=== PATIENT | female | born 1990 | race Two or more races ===

== ENCOUNTER 2016-05-19 23:23 | Inpatient (IN) | payer MEDICARE, OTHER ==
[2016-05-20 00:39] LABS: Hematocrit 36 % (35-47); Hemoglobin 12.4 g/dl (12.0-16.0); Mean Corpuscular HGB Conc 34 g/dl (31-36); Mean Corpuscular Hemoglobin 34 pg (27-31); Mean Corpuscular Volume 100 fL (80-97); Mean Platelet Volume 8 um3 (7.4-10.4); Red Blood Count 3.62 10^6/ul (4.0-5.4); Red Cell Distribution Width 13 % (10.5-15); White Blood Count 7.3 10^3/ul (3.5-10.8)
[2016-05-20 00:47] LABS: Benzodiazepine Urine Screen None Detected (None Detect)
[2016-05-20 00:48] LABS: ALT 10 U/L (7-52); AST 19 U/L (13-39); Albumin 4.3 g/dL (3.2-5.2); Alkaline Phosphatase 45 U/L (34-104); Anion Gap 7 mmol/L (2-11); BUN/Creatinine Ratio 12.9 (8-20); Blood Urea Nitrogen 17 mg/dL (6-24); CO2 Carbon Dioxide 28 mmol/L (22-32); Calcium 9.8 mg/dL (8.6-10.3); Chloride 100 mmol/L (101-111); EGFR African American 61.6 (>60); EGFR Non-African American 47.9 (>60); Globulin 2.7 g/dL (2-4); Glucose 89 mg/dL (70-100); Potassium 3.8 mmol/L (3.5-5.0); Sodium 135 mmol/L (133-145)
[2016-05-20 00:59] LABS: Urine Bacteria Absent (Absent); Urine Bilirubin Negative (Negative); Urine Glucose Negative (Negative); Urine Nitrite Negative (Negative)
[2016-05-20 01:08] LABS: Acetaminophen < 15 mcg/mL; Alcohol < 10 mg/dL (<10); Salicylate < 2.50 mg/dL (<30)
[2016-05-20 01:18] LABS: TSH (Thyroid Stimulating Horm) 1.96 mcIU/mL (0.34-5.60)
[2016-05-20] MEDS ORDERED: Lithium Carbonate TAB* 300 MG PO SCH (11:30)
[2016-05-20] MEDS: Divalproex DR TAB(*) 500 MG PO SCH ×3 (12:10→21:16)
--- NOTE | 2016-05-20 12:12 | ED ---
Tee Hitchcock Benjamin, scribed for Isael Harley MD on 05/20/16 at 1148 . Progress - Progress Note Progress Note: Signout pt from Dr. Orozco for psychosis. 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 The documentation as recorded by the Tee diaz Benjamin accurately reflects the service I personally performed and the decisions made by me, Isael Harley MD.
[2016-05-20] MEDS: Benztropine TAB* 1 MG PO SCH ×3 (12:14→21:17)
[2016-05-20] MEDS: Folic Acid TAB* 1 MG PO SCH (12:19)
[2016-05-20] MEDS ORDERED: risperiDONE TAB* 2 MG PO SCH (18:00)
[2016-05-20] MEDS: Lithium Carbonate TAB* 300 MG PO SCH (18:36)
[2016-05-20] MEDS ORDERED: Acetaminophen TAB* 325 MG PO PRN (21:41)
[2016-05-21] MEDS: Levothyroxine TAB* 112 MCG TAB PO SCH (06:05)
[2016-05-21] MEDS ORDERED: Methotrexate TAB* 2.5 MG PO SCH (09:00)
[2016-05-21] MEDS: Divalproex DR TAB(*) 500 MG PO SCH ×2 (09:48→20:54)
[2016-05-21] MEDS: Folic Acid TAB* 1 MG PO SCH (09:49)
[2016-05-21] MEDS: Vitamin THERAPEUTIC TAB PO SCH (09:49)
[2016-05-21] MEDS: Lithium Carbonate TAB* 300 MG PO SCH ×2 (09:49→17:44)
[2016-05-21] MEDS: Benztropine TAB* 1 MG PO SCH ×2 (09:50→20:54)
[2016-05-21] MEDS: Al Hydrox/Mg Hydrox/Simet LIQ* 30 ML UDC PO PRN (10:18)
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
[2016-05-21] MEDS: risperiDONE TAB* 2 MG PO SCH (20:54)
[2016-05-22] MEDS: Levothyroxine TAB* 112 MCG TAB PO SCH (06:19)
[2016-05-22] MEDS: Vitamin THERAPEUTIC TAB PO SCH (08:09)
[2016-05-22] MEDS: Folic Acid TAB* 1 MG PO SCH (08:09)
[2016-05-22] MEDS: Divalproex DR TAB(*) 500 MG PO SCH ×2 (08:09→20:44)
[2016-05-22] MEDS: Lithium Carbonate TAB* 300 MG PO SCH ×2 (08:09→17:37)
[2016-05-22] MEDS: Benztropine TAB* 1 MG PO SCH ×2 (08:09→20:44)
[2016-05-22] MEDS ORDERED: ETANERCEPT 50 MG/ML SUBCUT SCH (09:00)
[2016-05-22] MEDS: Al Hydrox/Mg Hydrox/Simet LIQ* 30 ML UDC PO PRN (14:51)
[2016-05-22] MEDS: risperiDONE TAB* 2 MG PO SCH (20:44)
[2016-05-23] MEDS: Levothyroxine TAB* 112 MCG TAB PO SCH (07:46)
[2016-05-23] MEDS: Al Hydrox/Mg Hydrox/Simet LIQ* 30 ML UDC PO PRN ×3 (09:02→21:25)
[2016-05-23] MEDS: Folic Acid TAB* 1 MG PO SCH (09:03)
[2016-05-23] MEDS: Benztropine TAB* 1 MG PO SCH ×2 (09:03→20:21)
[2016-05-23] MEDS: Divalproex DR TAB(*) 500 MG PO SCH ×2 (09:03→20:21)
[2016-05-23] MEDS: Lithium Carbonate TAB* 300 MG PO SCH ×2 (09:04→17:46)
[2016-05-23] MEDS: Vitamin THERAPEUTIC TAB PO SCH (09:04)
--- NOTE | 2016-05-23 14:44 | DS ---
Subjective - Subjective Service Types: 59215 [facility] Day Mgmt simple under 30 min Discharge Date: 05/23/16 Subjective: Patient evaluated and records reviewed as per hand off request to discharge her home with her grand parents on SUN if approriate. Qi is a 26 y/o female with h/o Schizophrenia and Intellectual disability( IQ 77) re admitted to [facility] due to disturbing auditory hallucination leeding upto her inability to sleep.All reports indicate she was complient with her meds both inpatient and outpatient. Admission Dx: Schizoaffective d/o, Bipolar type and Intellectual disability. Past psychiatric history is remarkable for multiple admission to this unit, last one in 2016. She was also hospitalized at [facility] several time. First psychiatric hospitalization was at age 11. Past Medical History: Rheumatoid arthritis, GERD and Hypothyroidism. No Substance abuse history. Qi lives with her grand parents. Biological parents aren't meaningfully involved in her life. She is single and has no children. Objective - Appearance Appearance: Healthy Appearing Dysmorphic Features: No Hygiene: Normal Grooming: Well Kept - Behavior Psychomotor Activities: Abnormal-Decreased - Attitude and Relatedness Attitude and Relatedness: Appropriate Eye Contact: Good - Speech Quality: Unpressured Latencies: Normal Quantity: Terse - Mood Patient's Decription of Mood: "Good" - Affect Observed Affect: Non-labile - Thought Process Patient's Thought Process: Coherent, Goal Directed Thought Content: No Passive Wish, No Suicidal Planning, No Homicidal Ideation, No Paranoid Ideation - Sensorium Experiencing Hallucinations: No, Sensorium is Clear Type of Hallucinations: Visual: No, Auditory: No, Command: No - Level of Consciousness Level of Consciousness: Alert Orientation: Yes Intact, Yes Orientated to Time, Yes Orientated to Place, Yes Orientated to Person - Impulse Control Impulse Control: Intact - Insight and Judgement Insight and Judgement: Good - Group Participation Particating in Group Activities: Yes - Medication Management Medication Management Adherence: Yes Treatment Course & Assessment Clinical Course & Impression: 26 y/o WF known to this unit from prior admissions was readmitted in the context of disturbing auditory hallucinations. She has a established diagnosis of Schizoaffective d/o and Intellectual disability with h/o multiple hospitalizations beginning at age 11. On current treatments and supports Qi started feeling better and a decision was made by the treatment team decieded to discharge her home with her grandparents if her GP were willing to take her home. On today's evaluation Qi is at her baseline mental status and psychiatrically appropriate for discharge. However her grandmother expressed multiple concerns and would like the treatment team to speak with her prior to her discharge. We will hold off sending her home today to be able to clarify grandrosa maria's concerns as early as Mon or Tuesday. Merits Inpatient Hospitalization: No - [place] I Mental Illness: Schizoaffective d/o, Bipolar type - [place] II MR and Personality Disorder: Intellectual disability. Discharge Planning - Discharge Planning Discharge Plan: Outpatient Follow Up Outpatient Program: [facility] Recommendations for Continuing Care: Medication Management, Psychotherapy, Primary Care Followup Medications: Current Medications Acetaminophen (Tylenol Tab*) 650 mg PO Q4H PRN PRN Reason: PAIN or TEMP > 101 F Last Admin: 05/22/16 09:17 Dose: 650 mg Al Hydrox/Mg Hydrox/Simethicone (Maalox Plus*) 30 ml PO Q4H PRN PRN Reason: INDIGESTION Last Admin: 05/23/16 09:02 Dose: 30 ml Benztropine Mesylate (Cogentin Tab*) 2 mg PO BID [facility] Last Admin: 05/23/16 09:03 Dose: 2 mg Divalproex Sodium (Depakote Dr Tab(*)) 500 mg PO BID [facility] Last Admin: 05/23/16 09:03 Dose: 500 mg Etanercept (Enbrel (Nf)) 50 mg SUBCUT Sa@0900 [facility] Last Admin: 05/22/16 10:59 Dose: 50 mg Folic Acid (Folvite Tab*) 1 mg PO DAILY [facility] Last Admin: 05/23/16 09:03 Dose: 1 mg Levothyroxine Sodium (Synthroid Tab*) 112 mcg PO DAILY@0600 [facility] Last Admin: 05/23/16 07:46 Dose: 112 mcg [place] Carbonate ([place] Carbonate Tab*) 300 mg PO QPM [facility] Last Admin: 05/22/16 17:37 Dose: 300 mg [place] Carbonate ([place] Carbonate Tab*) 300 mg PO QAM [facility] Last Admin: 05/23/16 09:04 Dose: 300 mg Methotrexate (Methotrexate Tab*) 20 mg PO WEEKLY@0900 [facility] Last Admin: 05/21/16 09:59 Dose: 20 mg Multivitamins (Theragran Tab*) 1 tab PO DAILY [facility] Last Admin: 05/23/16 09:04 Dose: 1 tab Risperidone (Risperdal*) 8 mg PO BEDTIME [facility] Last Admin: 05/22/16 20:44 Dose: 8 mg Discharge Planning: Prescriptions provided for discharge [] Yes [] No Follow up care details as per social work arrangements. Patient response to discharge plan: [] eager for discharge [] agreeable with discharge plan [] ambivalent about discharge [] disagrees with discharge today
[2016-05-23] MEDS: risperiDONE TAB* 2 MG PO SCH (20:21)
[2016-05-24 08:04] VITALS: BP 108/74
[2016-05-24] MEDS: Levothyroxine TAB* 112 MCG TAB PO SCH (08:21)
[2016-05-24] MEDS: Folic Acid TAB* 1 MG PO SCH (08:21)
[2016-05-24] MEDS: Divalproex DR TAB(*) 500 MG PO SCH (08:22)
[2016-05-24] MEDS: Lithium Carbonate TAB* 300 MG PO SCH (08:22)
[2016-05-24] MEDS: Benztropine TAB* 1 MG PO SCH (08:22)
[2016-05-24] MEDS: Vitamin THERAPEUTIC TAB PO SCH (08:22)
--- NOTE | 2016-05-24 10:34 | PN ---
Subjective - Subjective Service Type: [id number] Hosp care 15 min low complexity Plan - Plan Treatment Plan: Name: IRASEMA FRANZ Birthdate: 1990 [id number] Medications: Current Medications Acetaminophen (Tylenol Tab*) 650 mg PO Q4H PRN PRN Reason: PAIN or TEMP > 101 F Last Admin: 05/22/16 09:17 Dose: 650 mg Al Hydrox/Mg Hydrox/Simethicone (Maalox Plus*) 30 ml PO Q4H PRN PRN Reason: INDIGESTION Last Admin: 05/23/16 21:25 Dose: 30 ml Benztropine Mesylate (Cogentin Tab*) 2 mg PO BID [facility] Last Admin: 05/24/16 08:22 Dose: 2 mg Divalproex Sodium (Depakote Dr Tab(*)) 500 mg PO BID [facility] Last Admin: 05/24/16 08:22 Dose: 500 mg Etanercept (Enbrel (Nf)) 50 mg SUBCUT Sa@0900 [facility] Last Admin: 05/22/16 10:59 Dose: 50 mg Folic Acid (Folvite Tab*) 1 mg PO DAILY [facility] Last Admin: 05/24/16 08:21 Dose: 1 mg Levothyroxine Sodium (Synthroid Tab*) 112 mcg PO DAILY@0600 [facility] Last Admin: 05/24/16 08:21 Dose: 112 mcg [place] Carbonate (Dana Carbonate Tab*) 300 mg PO QPM [facility] Last Admin: 05/23/16 17:46 Dose: 300 mg [place] Carbonate (Dana Carbonate Tab*) 300 mg PO QAM [facility] Last Admin: 05/24/16 08:22 Dose: 300 mg Methotrexate (Methotrexate Tab*) 20 mg PO WEEKLY@0900 [facility] Last Admin: 05/21/16 09:59 Dose: 20 mg Multivitamins (Theragran Tab*) 1 tab PO DAILY [facility] Last Admin: 05/24/16 08:22 Dose: 1 tab Risperidone (Risperdal*) 8 mg PO BEDTIME [facility] Last Admin: 05/23/16 20:21 Dose: 8 mg
[2016-05-24] MEDS ORDERED: Lithium Carbonate TAB* 300 MG PO SCH (10:35)
--- NOTE | 2016-05-24 10:40 | DS ---
Subjective - Subjective Service Types: 18825 Hosp DC Day Mgmt complex over 30 min Discharge Date: 05/24/16 Treatment Course & Assessment - [place] I Mental Illness: Schizoaffective d/o, Bipolar type - [place] II MR and Personality Disorder: Intellectual disability. Discharge Planning - Discharge Planning Discharge Plan: Outpatient Follow Up Recommendations for Continuing Care: Medication Management, Psychotherapy, Routine Metabolic Monitoring, Therapeutic Drug Levels Medications: Current Medications Acetaminophen (Tylenol Tab*) 650 mg PO Q4H PRN PRN Reason: PAIN or TEMP > 101 F Last Admin: 05/22/16 09:17 Dose: 650 mg Al Hydrox/Mg Hydrox/Simethicone (Maalox Plus*) 30 ml PO Q4H PRN PRN Reason: INDIGESTION Last Admin: 05/23/16 21:25 Dose: 30 ml Benztropine Mesylate (Cogentin Tab*) 2 mg PO BID [facility] Last Admin: 05/24/16 08:22 Dose: 2 mg Divalproex Sodium (Depakote Dr Tab(*)) 500 mg PO BID [facility] Last Admin: 05/24/16 08:22 Dose: 500 mg Etanercept (Enbrel (Nf)) 50 mg SUBCUT Sa@0900 [facility] Last Admin: 05/22/16 10:59 Dose: 50 mg Folic Acid (Folvite Tab*) 1 mg PO DAILY [facility] Last Admin: 05/24/16 08:21 Dose: 1 mg Levothyroxine Sodium (Synthroid Tab*) 112 mcg PO DAILY@0600 [facility] Last Admin: 05/24/16 08:21 Dose: 112 mcg [place] Carbonate ([place] Carbonate Tab*) 300 mg PO QPM [facility] Last Admin: 05/23/16 17:46 Dose: 300 mg [place] Carbonate ([place] Carbonate Tab*) 300 mg PO QAM [facility] Last Admin: 05/24/16 08:22 Dose: 300 mg Methotrexate (Methotrexate Tab*) 20 mg PO WEEKLY@0900 [facility] Last Admin: 05/21/16 09:59 Dose: 20 mg Multivitamins (Theragran Tab*) 1 tab PO DAILY [facility] Last Admin: 05/24/16 08:22 Dose: 1 tab Risperidone (Risperdal*) 8 mg PO BEDTIME [facility] Last Admin: 05/23/16 20:21 Dose: 8 mg Discharge Planning: Prescriptions provided for discharge [] Yes [] No Follow up care details as per social work arrangements. Patient response to discharge plan: [] eager for discharge [] agreeable with discharge plan [] ambivalent about discharge [] disagrees with discharge today
--- NOTE | 2016-05-24 10:44 | DCNOTE ---
Subjective - Subjective Service Types: 93389 Hosp DC Day Mgmt complex over 30 min Discharge Date: 05/24/16 Subjective: Qi remains interested in discharge. She denies perceptual disturbance or distress, and makes no delusional comments. I conveyed info from g-parents about plan for propranolol and she was interested in starting it, noting familiarity and good result. She also was okay with prior dose of Altheimer. I spoke with her grandmother Taylor. Her anxiety was that although Qi is doing well, she worries that a pattern of hospitalizations will result again. She expressed a strong preference for pt. to be on higher dose Altheimer, preferably 1200mg, but agreed with 900mg dose. And she said plan was to see her prescriber this week for propranolol, but I offered to start it here (for tremor). She supported Qi's release today, and confirmed adequate supply of all home medications. Objective - Appearance Appearance: Well Developed/Nourished Hygiene: Normal Grooming: Well Kept - Behavior Psychomotor Activities: Normal - Attitude and Relatedness Attitude and Relatedness: Child Like Eye Contact: Good - Speech Quality: Unpressured Latencies: Normal Quantity: Terse - Mood Patient's Decription of Mood: "Anxious" - Affect Observed Affect: Labile Affect Consistent with: Euthymia - Thought Process Patient's Thought Process: Coherent, Goal Directed, Impoverished Thought Content: No Passive Wish, No Suicidal Planning, No Homicidal Ideation, No Paranoid Ideation - Sensorium Experiencing Hallucinations: No, Sensorium is Clear - Level of Consciousness Level of Consciousness: Alert - Impulse Control Impulse Control: Intact - Insight and Judgement Insight and Judgement: Poor DC Assessment - Assessment Clinical Impression: 26-year-old female with chronic intellectual disability and schizoaffective disorder with multiple prior psychiatric hospitalizations. She presented in an acute crisis of a couple of days' distress with a apparent hallucinations, some increase in delusional ideation and difficulty functioning. 05/24/16 Clear for release. Qi was stable in this setting. Her clinical status is much mider than we have seen previously. She was not bothered by perceptual disturbances, and did not make delusional comments. She was safe on checks, hygiene was good, she was in good behavioral control. A brief hospitalization, keeping with her preference, has been appropriate. Medication mgt. continues her outpatient regimen, adding propranolol to address tremor (grandfather said it had been effective before). Qi is prone to this kind of crisis. Acute risk of harm to self/other is assessed as low on basis of patient's benign ideation/behavior and low symptom burden. Her conditions increase her chronic risk for suicide, minor violence, and inadvertent harm. Clear for Discharge: Adequate Clinical Respons, Acceptable Safety Profile, Low Utility of In Care - [place] I Mental Illness: 1. Intellectual disability. 2. Schizoaffective disorder, bipolar type. Discharge Planning - Discharge Planning Discharge Plan: Outpatient Follow Up Recommendations for Continuing Care: Medication Management, Psychotherapy, Routine Metabolic Monitoring, Therapeutic Drug Levels Medications: Current Medications Acetaminophen (Tylenol Tab*) 650 mg PO Q4H PRN PRN Reason: PAIN or TEMP > 101 F Last Admin: 05/22/16 09:17 Dose: 650 mg Al Hydrox/Mg Hydrox/Simethicone (Maalox Plus*) 30 ml PO Q4H PRN PRN Reason: INDIGESTION Last Admin: 05/23/16 21:25 Dose: 30 ml Benztropine Mesylate (Cogentin Tab*) 2 mg PO BID [facility] Last Admin: 05/24/16 08:22 Dose: 2 mg Divalproex Sodium (Depakote Dr Tab(*)) 500 mg PO BID [facility] Last Admin: 05/24/16 08:22 Dose: 500 mg Etanercept (Enbrel (Nf)) 50 mg SUBCUT Sa@0900 [facility] Last Admin: 05/22/16 10:59 Dose: 50 mg Folic Acid (Folvite Tab*) 1 mg PO DAILY [facility] Last Admin: 05/24/16 08:21 Dose: 1 mg Levothyroxine Sodium (Synthroid Tab*) 112 mcg PO DAILY@0600 [facility] Last Admin: 05/24/16 08:21 Dose: 112 mcg [place] Carbonate (Altheimer Carbonate Tab*) 300 mg PO QAM [facility] Last Admin: 05/24/16 08:22 Dose: 300 mg [place] Carbonate ([place] Carbonate Tab*) 600 mg PO QPM [facility] Methotrexate (Methotrexate Tab*) 20 mg PO WEEKLY@0900 [facility] Last Admin: 05/21/16 09:59 Dose: 20 mg Multivitamins (Theragran Tab*) 1 tab PO DAILY [facility] Last Admin: 05/24/16 08:22 Dose: 1 tab Propranolol HCl (Inderal Tab*) 10 mg PO BID [facility] Risperidone (Risperdal*) 8 mg PO BEDTIME [facility] Last Admin: 05/23/16 20:21 Dose: 8 mg Discharge Planning: Prescriptions provided for discharge [x] Yes propranolol Follow up care details as per social work arrangements. Patient response to discharge plan: [x] eager for discharge [] agreeable with discharge plan [] ambivalent about discharge [] disagrees with discharge today
--- NOTE | 2016-05-24 11:15 | PN ---
[facility]: Group Therapy Note - Service Type Service Type: 09913 Group Psychotherapy - Cognitive Behavioral Group Therapy ( CBT):Patient was attentive and participatory in CBT programming this morning, and remained in good behavioral control. Patient expressed positive insights regarding relevant treatment interventions and goals.
[2016-05-24] MEDS ORDERED: Propranolol TAB* 10 MG PO SCH (21:00)
--- NOTE | 2016-06-08 04:05 | ED ---
Benoit Hitchcock Karl, scribed for Trip Orozco MD on 05/20/16 at 0023 . Psychiatric Complaint - HPI Summary HPI Summary: Pt is a 26 y/o female that presents to the ED a psychiatric complaint. Pt reported that for the last 4 days she has been suffering from auditory hallucinations, sleep deprivation, tremors, and dehydration. Pt stated she is hearing voices and "not feeling right, out of it." Per nursing note, pt's grandmother reports that the pt had an argument with her doctor today about a medication change. Pt was seen at [facility] earlier today. Hx: Bipolar disorder w/ psychotic features. - History Of Current Complaint Chief Complaint: EDMentalHealth Time Seen by Provider: 05/19/16 23:54 Hx Obtained From: Patient Onset/Duration: Gradual Onset Timing: Constant Severity Initially: Moderate Severity Currently: Moderate Aggravating Factor(s): Medication Non-compliance - changte in medication Associated Signs And Symptoms: Positive: Hallucinating, Sleep Disturbance Related History: Positive For: Prior Psychiatric Issues Has Suicidal: Denies: Thoughts, With A Plan Has Homicidal: Denies: Thoughts, With A Plan - Allergies/Home Medications Allergies/Adverse Reactions: Allergies Allergy/AdvReac Type Severity Reaction Status Date / Time No Known Allergies Allergy Verified 05/22/16 16:04 PMH/Surg Hx/FS Hx/Imm Hx Endocrine/Hematology History: Reports: Hx Thyroid Disease - HYPOTHYROIDISM, Other Endocrine/Hematological Disorders - Rheumatoid Arthritis GI History: Reports: Hx Gastroesophageal Reflux Disease Musculoskeletal History: Reports: Hx Arthritis, Other Musculoskeletal History - RHEUMATOID ARTHRITIS Sensory History: Reports: Hx Contacts or Glasses Opthamlomology History: Reports: Hx Contacts or Glasses Neurological History: Reports: Hx Developmental Delay Psychiatric History: Reports: Hx Inpatient Treatment - [facility], [facility], Hx Community Mental Health [facility] - [facility][1], Hx Bipolar Disorder, Hx of Violent Episodes Against Others, Other Psychiatric Issues/Disorders - Schizoaffective D/O Denies: Hx Eating Disorder - Surgical History Surgery Procedure, Year, and Place: tubal ligation 2013 Infectious Disease History: No Infectious Disease History: Denies: Traveled Outside the in Last 30 Days - Family History Known Family History: Positive: Other - bipolar disorder - mother, schizophrenia - grandmother, EtOH abuse - Social History Alcohol Use: None Substance Use Type: Reports: None Smoking Status (MU): Never Smoked Tobacco Have You Smoked in the Last Year: No Review of Systems Constitutional: Other - dehydration Eyes: Negative ENT: Negative Cardiovascular: Negative Respiratory: Negative Gastrointestinal: Negative Genitourinary: Negative Musculoskeletal: Negative Skin: Negative Neurological: Other - tremors Psychological: Other - auditory hallucinations, sleep disturbance All Other Systems Reviewed And Are Negative: Yes Physical Exam Vital Signs On Initial Exam: Initial Vitals Temp Pulse Resp BP Pulse Ox 98.4 F 97 18 128/86 100 05/19/16 23:29 05/19/16 23:29 05/19/16 23:29 05/19/16 23:29 05/19/16 23:29 Diagnostics - Vital Signs Vital Signs Temp Pulse Resp BP Pulse Ox 05/19/16 23:29 98.4 F 97 18 128/86 100 - Laboratory Lab Results: Lab Results 05/20/16 05/20/16 05/20/16 Range/Units 00:20 00:20 00:20 WBC 7.3 (3.5-10.8) 10^3/ul RBC 3.62 L (4.0-5.4) 10^6/ul Hgb 12.4 (12.0-16.0) g/dl Hct 36 (35-47) % MCV 100 H (80-97) fL MCH 34 H (27-31) pg MCHC 34 (31-36) g/dl RDW 13 (10.5-15) % Plt Count 161 (150-450) 10^3/ul MPV 8 (7.4-10.4) um3 Neut % (Auto) 58.5 (38-83) % Lymph % (Auto) 31.2 (25-47) % [place] % (Auto) 7.3 (1-9) % Eos % (Auto) 2.0 (0-6) % Baso % (Auto) 1.0 (0-2) % Absolute Neuts (auto) 4.3 (1.5-7.7) 10^3/ul Absolute Lymphs (auto) 2.3 (1.0-4.8) 10^3/ul Absolute Monos (auto) 0.5 (0-0.8) 10^3/ul Absolute Eos (auto) 0.1 (0-0.6) 10^3/ul Absolute Basos (auto) 0.1 (0-0.2) 10^3/ul Absolute Nucleated RBC 0.01 10^3/ul Nucleated RBC % 0.1 Sodium 135 (133-145) mmol/L Potassium 3.8 (3.5-5.0) mmol/L Chloride 100 L (101-111) mmol/L Carbon Dioxide 28 (22-32) mmol/L Anion Gap 7 (2-11) mmol/L BUN 17 (6-24) mg/dL Creatinine 1.32 H (0.51-0.95) mg/dL Est GFR ( Amer) 61.6 (>60) Est GFR (Non-Af Amer) 47.9 (>60) BUN/Creatinine Ratio 12.9 (8-20) Glucose 89 (70-100) mg/dL Calcium 9.8 (8.6-10.3) mg/dL Total Bilirubin 0.40 (0.2-1.0) mg/dL AST 19 (13-39) U/L ALT 10 (7-52) U/L Alkaline Phosphatase 45 (34-104) U/L Total Protein 7.0 (6.4-8.9) g/dL Albumin 4.3 (3.2-5.2) g/dL Globulin 2.7 (2-4) g/dL Albumin/Globulin Ratio 1.6 (1-3) TSH 1.96 (0.34-5.60) mcIU/mL Beta HCG, Quant < 0.60 mIU/mL Urine Color Yellow Urine Appearance Cloudy Urine pH 6.0 (5-9) Ur Specific [place] 1.018 (1.010-1.030) Urine Protein Negative (Negative) Urine Ketones Trace H (Negative) Urine Blood Negative (Negative) Urine Nitrate Negative (Negative) Urine Bilirubin Negative (Negative) Urine Urobilinogen Negative (Negative) Ur Leukocyte Esterase 3+ H (Negative) Urine WBC (Auto) 3+(>20/hpf) H (Absent) Urine RBC (Auto) 3+(>10/hpf) H (Absent) Ur Squamous Epith Cells Present H (Absent) Urine Bacteria Absent (Absent) Urine Glucose Negative (Negative) Urine Ascorbic Acid * H (Negative) Salicylates < 2.50 (<30) mg/dL Urine Opiates Screen (None Detect) Acetaminophen < 15 mcg/mL Ur Barbiturates Screen (None Detect) Ur Phencyclidine Scrn (None Detect) Ur Amphetamines Screen (None Detect) U Benzodiazepines Scrn (None Detect) Urine Cocaine Screen (None Detect) U Cannabinoids Screen (None Detect) Serum Alcohol < 10 (<10) mg/dL 05/20/16 Range/Units 00:20 WBC (3.5-10.8) 10^3/ul RBC (4.0-5.4) 10^6/ul Hgb (12.0-16.0) g/dl Hct (35-47) % MCV (80-97) fL MCH (27-31) pg MCHC (31-36) g/dl RDW (10.5-15) % Plt Count (150-450) 10^3/ul MPV (7.4-10.4) um3 Neut % (Auto) (38-83) % Lymph % (Auto) (25-47) % [place] % (Auto) (1-9) % Eos % (Auto) (0-6) % Baso % (Auto) (0-2) % Absolute Neuts (auto) (1.5-7.7) 10^3/ul Absolute Lymphs (auto) (1.0-4.8) 10^3/ul Absolute Monos (auto) (0-0.8) 10^3/ul Absolute Eos (auto) (0-0.6) 10^3/ul Absolute Basos (auto) (0-0.2) 10^3/ul Absolute Nucleated RBC 10^3/ul Nucleated RBC % Sodium (133-145) mmol/L Potassium (3.5-5.0) mmol/L Chloride (101-111) mmol/L Carbon Dioxide (22-32) mmol/L Anion Gap (2-11) mmol/L BUN (6-24) mg/dL Creatinine (0.51-0.95) mg/dL Est GFR ( Amer) (>60) Est GFR (Non-Af Amer) (>60) BUN/Creatinine Ratio (8-20) Glucose (70-100) mg/dL Calcium (8.6-10.3) mg/dL Total Bilirubin (0.2-1.0) mg/dL AST (13-39) U/L ALT (7-52) U/L Alkaline Phosphatase (34-104) U/L Total Protein (6.4-8.9) g/dL Albumin (3.2-5.2) g/dL Globulin (2-4) g/dL Albumin/Globulin Ratio (1-3) TSH (0.34-5.60) mcIU/mL Beta HCG, Quant mIU/mL Urine Color Urine Appearance Urine pH (5-9) Ur Specific [place] (1.010-1.030) Urine Protein (Negative) Urine Ketones (Negative) Urine Blood (Negative) Urine Nitrate (Negative) Urine Bilirubin (Negative) Urine Urobilinogen (Negative) Ur Leukocyte Esterase (Negative) Urine WBC (Auto) (Absent) Urine RBC (Auto) (Absent) Ur Squamous Epith Cells (Absent) Urine Bacteria (Absent) Urine Glucose (Negative) Urine Ascorbic Acid (Negative) Salicylates (<30) mg/dL Urine Opiates Screen None detected (None Detect) Acetaminophen mcg/mL Ur Barbiturates Screen None detected (None Detect) Ur Phencyclidine Scrn None detected (None Detect) Ur Amphetamines Screen None detected (None Detect) U Benzodiazepines Scrn None detected (None Detect) Urine Cocaine Screen None detected (None Detect) U Cannabinoids Screen None detected (None Detect) Serum Alcohol (<10) mg/dL Result Diagrams: 05/20/16 00:20 05/20/16 00:20 Lab Statement: Any lab studies that have been ordered have been reviewed, and results considered in the medical decision making process. Course/Dx - Differential Dx/Clinical Impression Provider Diagnosis: Psychosis - Physician Notifications Instructed by Provider To: Admit As Inpatient Discharge - Discharge Plan Condition: Fair Disposition: ADMITTED TO [facility] The documentation as recorded by the Benoit diaz Karl accurately reflects the service I personally performed and the decisions made by Pam sandoval David, MD.
== END 2016-05-24 18:35 | disposition home or self-care (01) | DRG 885 ==
LOC: ED 23:23 → BSU 05-20 17:53
PROVIDERS: ADMIT Psychiatry & Neurology Psychiatry; ATTEND Psychiatry & Neurology Psychiatry
DX: F25.0 Schizoaffective disorder, bipolar type (principal); F79 Unspecified intellectual disabilities; E03.9 Hypothyroidism, unspecified; M06.9 Rheumatoid arthritis, unspecified; K21.9 Gastro-esophageal reflux disease without esophagitis; Z81.8 Family history of other mental and behavioral disorders
CPT/HCPCS: 36415; 80053; 80307; 80320; 80329; 81003; 81015; 84443; 84702; 85025; 87086; 90853; 99222; 99238; A9270-GY; G0480; J8610

== ENCOUNTER 2019-02-27 16:41 | Inpatient (IN) | payer MEDICARE, MEDICAID ==
--- OUTSIDE RECORDS SUMMARY | 2019-02-27 17:25 | XMS REPORT ---
:1990 Author Organization [facility] Dental Care Team Providers Name Role Phone Elissa Cain Unavailable Unavailable PROBLEMS Unknown Problems ALLERGIES No Known Allergies ENCOUNTERS Encounter Location Date Diagnosis [address] [address] Mar, [address] [address] Feb, [address] [address] Feb, [address] [address] Nov, IMMUNIZATIONS No Known Immunizations SOCIAL HISTORY Never Assessed REASON FOR REFERRAL FUNCTIONAL STATUS PLAN OF CARE VITAL SIGNS MEDICATIONS Medication Instructions Dosage Frequency Start Date End Date Duration Status Folic Acid Active RisperiDONE ER Active [place] Active Methotrexate Active Xeljanz Active Divalproex Sodium Active Levothyroxine Active Sodium Propranolol HCl Active Benztropine Active Mesylate Vistaril Active PROCEDURES Procedure Date Ordered Result Body Site Caries Risk Assess and Doc Low Risk Feb 15, 2019 PROPHYLAXIS - ADULT 13yrs and older Feb 15, 2019 RESULTS No Results REASON FOR VISIT cleaning Insurance Providers [facility] Member Patient Patient Patient Patient Patient Subscriber Subscriber Subscriber Group Insurance Plan Plan Plan Plan ID Relationship Address Phone Name Date of ID Name Date of No Type Insurance Insurance Insurance Coverage to Subscriber Address Phone Name Dates Medicare National [phone] Medicare self Qi 1990 [id number] PPS Government 41 PPS [employer] cker [address] [facility] [id number] Medicaid [id number] [phone] Medicaid self Qi 1990 [id number] [facility] [address] [id number] cker MEDICAL (GENERAL) HISTORY Type Description Date Medical History mental illness Medical History Arthritis Medical History thyroid disorder
--- OUTSIDE RECORDS SUMMARY | 2019-02-27 17:25 | XMS REPORT ---
:1990 Author Organization [facility] Care Team Providers Name Role Phone Quentin Gautam Unavailable Unavailable PROBLEMS Unknown Problems ALLERGIES No Information ENCOUNTERS Encounter Location Date Diagnosis [address] [address] Mar, [address] [address] Feb, [address] [address] Feb, [address] [address] Nov, IMMUNIZATIONS No Known Immunizations SOCIAL HISTORY Never Assessed REASON FOR REFERRAL FUNCTIONAL STATUS PLAN OF CARE VITAL SIGNS MEDICATIONS Medication Instructions Dosage Frequency Start Date End Date Duration Status Propranolol HCl Active RisperiDONE ER Active Folic Acid Active Benztropine Active Mesylate Methotrexate Active Vistaril Active Xeljanz Active Divalproex Sodium Active [place] Active Levothyroxine Active Sodium PROCEDURES Procedure Date Ordered Result Body Site COMP ORAL EVAL- NEW EST PT Feb 15, 2019 RESULTS No Results REASON FOR VISIT Insurance Providers [facility] Member Patient Patient Patient Patient Patient Subscriber Subscriber Subscriber Group Insurance Plan Plan Plan Plan ID Relationship Address Phone Name Date of ID Name Date of No Type Insurance Insurance Insurance Coverage to Subscriber Address Phone Name Dates Medicare National [phone] Medicare self Qi 1990 [id number] PPS Government 41 PPS [employer] cker [address] [place] [id number] Medicaid [id number] [phone] Medicaid self Qi 1990 [id number] [facility] [address] [id number] cker MEDICAL (GENERAL) HISTORY Type Description Date Medical History mental illness Medical History Arthritis Medical History thyroid disorder
[2019-02-27 19:53] LABS: Hematocrit 33 % (35-47); Hemoglobin 11.2 g/dL (12.0-16.0); Mean Corpuscular HGB Conc 34 g/dL (31-36); Mean Corpuscular Hemoglobin 34 pg (27-31); Mean Corpuscular Volume 99 fL (80-97); Mean Platelet Volume 7.5 fL (7.4-10.4); Platelet Count 188 10^3/uL (150-450); Red Cell Distribution Width 13 % (10-15); White Blood Count 6.1 10^3/uL (3.5-10.8)
[2019-02-27 20:23] LABS: HCG Pregnancy < 0.60 mIU/mL
[2019-02-27 20:29] LABS: ALT 9 U/L (7-52); AST 17 U/L (13-39); Albumin 4.5 g/dL (3.2-5.2); Albumin/Globulin Ratio 1.9 (1-3); Alkaline Phosphatase 39 U/L (34-104); Anion Gap 5 mmol/L (2-11); BUN/Creatinine Ratio 10.9 (8-20); Blood Urea Nitrogen 11 mg/dL (6-24); CO2 Carbon Dioxide 29 mmol/L (22-32); Calcium 10.2 mg/dL (8.6-10.3); Chloride 102 mmol/L (101-111); EGFR African American 77.9 (>60); EGFR Non-African American 64.4 (>60); Globulin 2.4 g/dL (2-4); Glucose 97 mg/dL (70-100); Potassium 3.8 mmol/L (3.5-5.0); Sodium 136 mmol/L (135-145); Total Protein 6.9 g/dL (6.4-8.9)
[2019-02-27 20:32] LABS: Acetaminophen < 15 mcg/mL; Alcohol < 10 mg/dL (<10); Salicylate < 2.50 mg/dL (<30)
[2019-02-27 20:42] LABS: TSH (Thyroid Stimulating Horm) 3.34 mcIU/mL (0.34-5.60)
[2019-02-27 20:45] LABS: ABS Eosinophils 0.2 10^3/ul (0-0.6); ABS Lymphocytes 1.7 10^3/ul (1.0-4.8); ABS Monocytes 0.7 10^3/ul (0-0.8); ABS Neutrophils 3.5 10^3/ul (1.5-7.7); Eosinophil % 2.6 %; Lymphocyte % 28.8 %; Nucleated Red Blood Cells % 0.2
[2019-02-27] MEDS ORDERED: risperiDONE TAB* 1 MG PO ONE (22:31)
[2019-02-27] MEDS ORDERED: Propranolol TAB* 20 MG PO ONE (22:32)
[2019-02-27] MEDS ORDERED: Lithium Carbonate TAB* 300 MG PO ONE (22:32)
[2019-02-27] MEDS ORDERED: Divalproex ER TAB(*) 500 MG PO ONE (22:33)
[2019-02-27] MEDS ORDERED: Benztropine TAB* 2 MG PO ONE (22:34)
[2019-02-27 22:40] LABS: Urine Benzodiazepine Screen None Detected (None Detect); Urine Opiates Screen None Detected (None Detect)
[2019-02-27 23:06] LABS: Urine Appearance Turbid; Urine Bacteria Absent (Absent); Urine Bilirubin Negative (Negative); Urine Blood 2+ (Negative); Urine Color Yellow; Urine Glucose Negative (Negative); Urine Ketones Negative (Negative); Urine Nitrite Negative (Negative); Urine Protein 2+(100 mg/dL) (Negative); Urine Red Blood Cell 3+(>10/hpf) (Absent); Urine Specific Gravity 1.008 (1.010-1.030); Urine Squamous Epithelial Cell Present (Absent); Urine Transitional Epithelial Present (Absent); Urine Urobilinogen Negative (Negative); Urine White Blood Cell 3+(>20/hpf) (Absent)
[2019-02-27 23:06] LABS: Lithium 0.95 mmol/L (0.6-1.2)
[2019-02-28] MEDS ORDERED: Amoxicillin/Clavulanate TAB* 500 MG PO ONE (00:54)
--- NOTE | 2019-02-28 00:58 | ED ---
Psychiatric Complaint - HPI Summary HPI Summary: 28-year-old female with history of schizophrenia presents with hearing voices for the past couple days. She has been hearing whispering and growling. She' ll states she's been seeing snakes. She states that they've upped her medication and her symptom are getting worse. She states that wakes her up out of her sleep. She denies any homicidal or suicidal thoughts. She denies any physical symptoms. - History Of Current Complaint Chief Complaint: EDMentalHealth Time Seen by Provider: 02/27/19 21:36 - Allergies/Home Medications Allergies/Adverse Reactions: Allergies Allergy/AdvReac Type Severity Reaction Status Date / Time No Known Allergies Allergy Verified 02/27/19 16:52 Home Medications: Home Medications Clindamycin 1% TOPICAL(NF) [Cleocin-T 1% TOPICAL(NF)] 1 applic TOPICAL BID 02/27 [History Confirmed 02/27/19] Divalproex DR TAB(*) [Bladimir CALVO(*)] 1,000 mg PO QAM 02/27/19 [History Confirmed 02/27/19] Divalproex DR TAB(*) [Bladimir CALVO(*)] 500 mg PO QPM 02/27/19 [History Confirmed 02/27/19] Lester Carbonate TAB* 600 mg PO BEDTIME 02/27/19 [History Confirmed 02/27/19] Methotrexate TAB* 20 mg PO WEEKLY 02/27/19 [History Confirmed 02/27/19] Propranolol TAB* [Inderal TAB*] 20 mg PO BID 02/27/19 [History Confirmed ] Tofacitinib Citrate [Xeljanz Xr] 11 mg PO DAILY 02/27/19 [History Confirmed ] risperiDONE [Risperidone ODT-] 8 mg PO BEDTIME 02/27/19 [History Confirmed 02/27] PMH/Surg Hx/FS Hx/Imm Hx Endocrine/Hematology History: Reports: Hx Thyroid Disease - HYPOTHYROIDISM, Hx Anemia, Other Endocrine/Hematological Disorders - Rheumatoid Arthritis Cardiovascular History: Reports: Hx Hypertension GI History: Reports: Hx Gastroesophageal Reflux Disease History: Reports: Other Problems/Disorders - HX UTI Musculoskeletal History: Reports: Hx Arthritis, Other Musculoskeletal History - RHEUMATOID ARTHRITIS Sensory History: Reports: Hx Contacts or Glasses Opthamlomology History: Reports: Hx Contacts or Glasses Neurological History: Reports: Hx Developmental Delay Psychiatric History: Reports: Hx Inpatient Treatment, Hx Community Mental Health Tx, Hx Bipolar Disorder, Hx of Violent Episodes Against Others, Other Psychiatric Issues/Disorders - schizoaffective, intellectual disability Denies: Hx Eating Disorder - Surgical History Surgery Procedure, Year, and Place: tubal ligation 2013 - Immunization History Immunizations Up to Date: Yes Infectious Disease History: No Infectious Disease History: Denies: Traveled Outside the [place] in Last 30 Days - Family History Known Family History: Positive: None - Social History Alcohol Use: None Substance Use Type: Reports: None Smoking Status (MU): Never Smoked Tobacco Have You Smoked in the Last Year: No Review of Systems Negative: Fever Negative: Chest Pain Negative: Shortness Of Breath Psychological: Other - hearing voices All Other Systems Reviewed And Are Negative: Yes Physical Exam Triage Information Reviewed: Yes Vital Signs On Initial Exam: Initial Vitals Temp Pulse Resp BP Pulse Ox 97.4 F 56 18 105/89 99 02/27/19 16:48 02/27/19 16:48 02/27/19 16:48 02/27/19 16:48 02/27/19 16:48 Vital Signs Reviewed: Yes Appearance: Positive: Well-Appearing Skin: Positive: Warm, Dry Head/Face: Positive: Normal Head/Face Inspection Eyes: Positive: Normal, Conjunctiva Clear ENT: Positive: Pharynx normal Respiratory/Lung Sounds: Positive: Clear to Auscultation, Breath Sounds Present Cardiovascular: Positive: Normal, RRR Musculoskeletal: Positive: Normal Neurological: Positive: Normal Psychiatric: Positive: Normal Procedures - Sedation Patient Received Moderate/Deep Sedation with Procedure: No Diagnostics - Vital Signs Vital Signs Temp Pulse Resp BP Pulse Ox 02/27/19 20:44 98.6 F 68 18 116/72 99 02/27/19 18:27 98.1 F 62 18 107/71 100 02/27/19 16:48 97.4 F 56 18 105/89 99 - Laboratory Lab Results: Lab Results 02/27/19 02/27/19 02/27/19 Range/Units 19:47 19:47 22:00 WBC 6.1 (3.5-10.8) 10^3/uL RBC 3.30 L (3.70-4.87) 10^6 /uL Hgb 11.2 L (12.0-16.0) g/dL Hct 33 L (35-47) % MCV 99 H (80-97) fL MCH 34 H (27-31) pg MCHC 34 (31-36) g/dL RDW 13 (10-15) % Plt Count 188 (150-450) 10^3/uL MPV 7.5 (7.4-10.4) fL Neut % (Auto) 57.0 % Lymph % (Auto) 28.8 % [place] % (Auto) 11.0 % Eos % (Auto) 2.6 % Baso % (Auto) 0.6 % Absolute Neuts (auto) 3.5 (1.5-7.7) 10^3/ul Absolute Lymphs (auto) 1.7 (1.0-4.8) 10^3/ul Absolute Monos (auto) 0.7 (0-0.8) 10^3/ul Absolute Eos (auto) 0.2 (0-0.6) 10^3/ul Absolute Basos (auto) 0.0 (0-0.2) 10^3/ul Absolute Nucleated RBC 0.0 10^3/ul Nucleated RBC % 0.2 Sodium 136 (135-145) mmol/L Potassium 3.8 (3.5-5.0) mmol/L Chloride 102 (101-111) mmol/L Carbon Dioxide 29 (22-32) mmol/L Anion Gap 5 (2-11) mmol/L BUN 11 (6-24) mg/dL Creatinine 1.01 H (0.51-0.95) mg/dL Est GFR ( Amer) 77.9 (>60) Est GFR (Non-Af Amer) 64.4 (>60) BUN/Creatinine Ratio 10.9 (8-20) Glucose 97 (70-100) mg/dL Calcium 10.2 (8.6-10.3) mg/dL Total Bilirubin 0.40 (0.2-1.0) mg/dL AST 17 (13-39) U/L ALT 9 (7-52) U/L Alkaline Phosphatase 39 (34-104) U/L Total Protein 6.9 (6.4-8.9) g/dL Albumin 4.5 (3.2-5.2) g/dL Globulin 2.4 (2-4) g/dL Albumin/Globulin Ratio 1.9 (1-3) TSH 3.34 (0.34-5.60) mcIU/mL Beta HCG, Quant < 0.60 mIU/mL Urine Color Yellow Urine Appearance Turbid Urine pH 6.0 (5-9) Ur Specific [place] 1.008 L (1.010-1.030) Urine Protein 2+(100 mg/dl) A (Negative) Urine Ketones Negative (Negative) Urine Blood 2+ A (Negative) Urine Nitrate Negative (Negative) Urine Bilirubin Negative (Negative) Urine Urobilinogen Negative (Negative) Ur Leukocyte Esterase 3+ A (Negative) Urine WBC (Auto) 3+(>20/hpf) A (Absent) Urine RBC (Auto) 3+(>10/hpf) A (Absent) Ur Squamous Epith Cells Present A (Absent) Ur Transition Epith Cell Present A (Absent) Urine Bacteria Absent (Absent) Urine Glucose Negative (Negative) Urine Ascorbic Acid * A (Negative) Salicylates < 2.50 (<30) mg/dL Urine Opiates Screen (None Detect) Acetaminophen < 15 mcg/mL Ur Barbiturates Screen (None Detect) Ur Phencyclidine Scrn (None Detect) Ur Amphetamines Screen (None Detect) U Benzodiazepines Scrn (None Detect) [place] 0.95 (0.6-1.2) mmol/L Urine Cocaine Screen (None Detect) U Cannabinoids Screen (None Detect) Serum Alcohol < 10 (<10) mg/dL 02/27/19 Range/Units 22:00 WBC (3.5-10.8) 10^3/uL RBC (3.70-4.87) 10^6 /uL Hgb (12.0-16.0) g/dL Hct (35-47) % MCV (80-97) fL MCH (27-31) pg MCHC (31-36) g/dL RDW (10-15) % Plt Count (150-450) 10^3/uL MPV (7.4-10.4) fL Neut % (Auto) % Lymph % (Auto) % [place] % (Auto) % Eos % (Auto) % Baso % (Auto) % Absolute Neuts (auto) (1.5-7.7) 10^3/ul Absolute Lymphs (auto) (1.0-4.8) 10^3/ul Absolute Monos (auto) (0-0.8) 10^3/ul Absolute Eos (auto) (0-0.6) 10^3/ul Absolute Basos (auto) (0-0.2) 10^3/ul Absolute Nucleated RBC 10^3/ul Nucleated RBC % Sodium (135-145) mmol/L Potassium (3.5-5.0) mmol/L Chloride (101-111) mmol/L Carbon Dioxide (22-32) mmol/L Anion Gap (2-11) mmol/L BUN (6-24) mg/dL Creatinine (0.51-0.95) mg/dL Est GFR ( Amer) (>60) Est GFR (Non-Af Amer) (>60) BUN/Creatinine Ratio (8-20) Glucose (70-100) mg/dL Calcium (8.6-10.3) mg/dL Total Bilirubin (0.2-1.0) mg/dL AST (13-39) U/L ALT (7-52) U/L Alkaline Phosphatase (34-104) U/L Total Protein (6.4-8.9) g/dL Albumin (3.2-5.2) g/dL Globulin (2-4) g/dL Albumin/Globulin Ratio (1-3) TSH (0.34-5.60) mcIU/mL Beta HCG, Quant mIU/mL Urine Color Urine Appearance Urine pH (5-9) Ur Specific [place] (1.010-1.030) Urine Protein (Negative) Urine Ketones (Negative) Urine Blood (Negative) Urine Nitrate (Negative) Urine Bilirubin (Negative) Urine Urobilinogen (Negative) Ur Leukocyte Esterase (Negative) Urine WBC (Auto) (Absent) Urine RBC (Auto) (Absent) Ur Squamous Epith Cells (Absent) Ur Transition Epith Cell (Absent) Urine Bacteria (Absent) Urine Glucose (Negative) Urine Ascorbic Acid (Negative) Salicylates (<30) mg/dL Urine Opiates Screen None detected (None Detect) Acetaminophen mcg/mL Ur Barbiturates Screen None detected (None Detect) Ur Phencyclidine Scrn None detected (None Detect) Ur Amphetamines Screen None detected (None Detect) U Benzodiazepines Scrn None detected (None Detect) [place] (0.6-1.2) mmol/L Urine Cocaine Screen None detected (None Detect) U Cannabinoids Screen None detected (None Detect) Serum Alcohol (<10) mg/dL Result Diagrams: 02/27/19 19:47 02/27/19 19:47 Lab Statement: Any lab studies that have been ordered have been reviewed, and results considered in the medical decision making process. Course/Dx - Course Course Of Treatment: 28-year-old female with history of schizophrenia presents with hearing voices for the past couple days. She has been hearing whispering and growling. She'll states she's been seeing snakes. She states that they've upped her medication and her symptom are getting worse. She states that wakes her up out of her sleep. She denies any homicidal or suicidal thoughts. She denies any physical symptoms. On exam normal physical exam. Urine shows potential uti. gave dose of Augmentin. Patient is medically clear for mental health. patient will be signed out to dr hobson pending mental health evulation for disposition. - Differential Dx/Clinical Impression Differential Diagnosis/HQI/PQRI: Positive: Anxiety, Depression, Schizophrenia Provider Diagnosis: Auditory hallucinations Discharge ED - Sign-Out/Discharge Documenting (check all that apply): Sign-Out Patient Signing out patient TO: Rafaela Hobson - Discharge Plan Referrals: No Primary Care Phys,NOPCP [Primary Care Provider] -
[2019-02-28] MEDS ORDERED: Benztropine TAB* 1 MG PO ONE (02:00)
[2019-02-28] MEDS ORDERED: Propranolol TAB* 10 MG PO ONE (02:00)
[2019-02-28] MEDS ORDERED: risperiDONE TAB* 2 MG PO ONE (02:00)
--- NOTE | 2019-02-28 02:45 | ED ---
Progress - Progress Note Progress Note: This pt is a signout from JR Wilson to Dr. Hobson at 0300 shift change pending MHE and disposition. Pt was evaluated by mental health services. Admission was deemed necessary. Pt will be transferred. Dx are schizophrenia and auditory hallucinations. This pt will be signed out from Dr. Hobson to Dr. Bone at 0700 02/28/19 shift change pending transfer. - Consult/PCP Time Called: 00:42 Course/Dx - Course Course Of Treatment: This pt is a signout from JR Wilson to Dr. Hobson at 0300 shift change pending MHE and disposition. Pt was evaluated by mental health services. Admission was deemed necessary. Pt will be transferred. Dx are schizophrenia and auditory hallucinations. This pt will be signed out from Dr. Hobson to Dr. Bone at 0700 02/28/19 shift change pending transfer. - Diagnoses Provider Diagnoses: Auditory hallucinations, Schizophrenia Discharge ED - Sign-Out/Discharge Documenting (check all that apply): Sign-Out Patient, Receiving Sign-Out Signing out patient TO: Sole Bone - This pt will be signed out from Dr. Hobson to Dr. Bone at 0700 02/28/19 shift change pending transfer. Receiving patient FROM: Swapna Wilson - This pt is a signout from JR Wilson to Dr. Hobson at 0300 shift change pending MHE and disposition. - Discharge Plan Condition: Stable Referrals: No Primary Care Phys,NOPCP [Primary Care Provider] - - Billing Disposition and Condition Condition: STABLE - Attestation Statements Document Initiated by Scribe: Yes Documenting Scribe: Ezequiel Oliveira Provider For Whom Fuentesibhema is Documenting (Include Credential): Dr. Rafaela Hobson MD Scribe Attestation: Ezequiel Hitchcock scribed for Dr. Rafaela Hobson MD on 02/28/19 at 0548. Scribe Documentation Reviewed: Yes Provider Attestation: The documentation as recorded by the Ezequiel diaz accurately reflects the service I personally performed and the decisions made by me, Dr. Rafaela Hobson MD Status of Scribe Document: Viewed
--- NOTE | 2019-02-28 07:20 | ED ---
Progress - Progress Note Progress Note: This patient was signed out from Dr. Hobson upon shift change on 02/28/19 at 07: 00 pending transfer disposition. Re-Evaluation - Re-Evaluation First Eval Re-Evaluation Time: 07:27 Change: Unchanged - patient is requesting analgesia, motrin, for STAHL. will order ibuprofen 600 mg PO Second Eval Re-Evaluation Time: 10:25 Change: Unchanged - mental health post anesthesia care unit nurse, Ty, states patient will be admitted voluntarily to psychiatric facility at [facility] Course/Dx - Diagnoses Provider Diagnoses: Unspecified psychosis - Provider Notifications Time Discussed With Above Provider: 10:15 Instructed by Provider To: Admit As Inpatient - Mental health post anesthesia care unit nurseTy, reviewed case with Dr. Meyer, psychiatry. They recommend admission. Discharge ED - Sign-Out/Discharge Documenting (check all that apply): Patient Departure - Admit Receiving patient FROM: Rafaela Hobson - Discharge Plan Condition: Stable Disposition: PSYCHIATRIC FACILITY-[facility] Referrals: No Primary Care Phys,NOPCP [Primary Care Provider] - - Billing Disposition and Condition Condition: STABLE Disposition: Psychiatric Facility [facility] - Attestation Statements Document Initiated by Scribe: Yes Documenting Scribe: Felicia Rodriguez Provider For Whom Scribe is Documenting (Include Credential): Sole Bone MD Scribe Attestation: I, Felicia Rodriguez, scribed for Sole Bone MD on 02/28/19 at 1047. Scribe Documentation Reviewed: Yes Provider Attestation: The documentation as recorded by the scribeFelicia accurately reflects the service I personally performed and the decisions made by me, Sole Bone MD Status of Scribe Document: Viewed Procedures - Sedation Patient Received Moderate/Deep Sedation with Procedure: No
[2019-02-28] MEDS ORDERED: Ibuprofen TAB* 600 MG PO ONE (07:26)
[2019-02-28] MEDS ORDERED: Methotrexate TAB* 2.5 MG PO SCH (19:00)
[2019-02-28] MEDS ORDERED: RISPERIDONE 4 MG PO SCH (21:00)
[2019-02-28] MEDS ORDERED: risperiDONE TAB* 2 MG PO SCH (21:00)
[2019-02-28] MEDS: Lithium Carbonate TAB* 300 MG PO SCH (21:02)
[2019-02-28] MEDS: Propranolol TAB* 20 MG PO SCH (21:02)
[2019-02-28] MEDS: Divalproex DR TAB(*) 500 MG PO SCH (21:02)
[2019-02-28] MEDS: Benztropine TAB* 1 MG PO SCH (21:03)
[2019-03-01] MEDS: Lithium Carbonate TAB* 300 MG PO SCH ×2 (08:01→20:29)
[2019-03-01] MEDS: Divalproex DR TAB(*) 500 MG PO SCH ×2 (08:01→20:29)
[2019-03-01] MEDS: Benztropine TAB* 1 MG PO SCH ×2 (08:02→20:28)
[2019-03-01] MEDS: Propranolol TAB* 20 MG PO SCH ×2 (08:03→20:32)
[2019-03-01] MEDS: XELJANZ 11 MG PO SCH (08:04)
[2019-03-01 08:35] LABS: HDL Cholesterol 62.8 mg/dL
[2019-03-01] MEDS: Ferrous Gluconate TAB* 324 MG TAB PO SCH (10:46)
[2019-03-01] MEDS: Polyethylene Glycol 3350* 17 GM PACKET PO SCH ×2 (10:47→20:33)
[2019-03-01] MEDS ORDERED: Gabapentin CAP(*) 300 MG PO PRN (14:33)
[2019-03-01] MEDS ORDERED: Lurasidone(*) 60 MG TAB PO SCH (17:00)
[2019-03-01] MEDS ORDERED: risperiDONE TAB* 2 MG PO SCH (21:00)
[2019-03-01] MEDS ORDERED: RISPERIDONE 4 MG PO SCH (21:00)
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
[2019-03-02] MEDS ORDERED: Ibuprofen TAB* 600 MG ONE (06:13)
[2019-03-02] MEDS ORDERED: Ibuprofen TAB* 600 MG PO ONE (06:30)
[2019-03-02] MEDS: XELJANZ 11 MG PO SCH (08:31)
[2019-03-02] MEDS: Ferrous Gluconate TAB* 324 MG TAB PO SCH (08:32)
[2019-03-02] MEDS: Propranolol TAB* 20 MG PO SCH ×2 (08:32→20:43)
[2019-03-02] MEDS: Polyethylene Glycol 3350* 17 GM PACKET PO SCH ×2 (08:33→20:44)
[2019-03-02] MEDS: Lithium Carbonate TAB* 300 MG PO SCH ×2 (08:33→20:40)
[2019-03-02] MEDS: Benztropine TAB* 1 MG PO SCH ×2 (08:33→20:38)
[2019-03-02] MEDS: Divalproex DR TAB(*) 500 MG PO SCH ×2 (08:34→20:37)
[2019-03-02] MEDS ORDERED: Influenza VAC *QUAD* 2019-20* 0.5 ML SYRINGE IM ONE (16:56)
[2019-03-02] MEDS ORDERED: Al Hydrox/Mg Hydrox/Simet LIQ* 30 ML UDC PO PRN (16:57)
[2019-03-02] MEDS: Lurasidone(*) 60 MG TAB PO SCH (18:08)
[2019-03-02] MEDS: RISPERIDONE 4 MG PO SCH (20:42)
[2019-03-02] MEDS ORDERED: RISPERIDONE 4 MG PO SCH (21:00)
--- NOTE | 2019-03-02 23:40 | PN ---
Subjective - Subjective Date of Service: 03/02/19 Service Type: 92589 Hosp care 15 min low complexity Subjective: Qi says she's feeling better, but she emphasizes that it is due to the addition of Latuda, which cannot be entirely true as some of the improvements she notes began to occur before Latuda. She states happily, "I'm better. I slept good through the night." She is slurring her words less and is significantly easier to understand. She acknowledges that the auditory hallucinations stopped the night she got here , before any medication changes occurred. She states she might have been "stressed out," as "my mom has a way of getting on my nerves." There is historical concern that Qi needs to be on high doses of Risperdal to keep her from becoming psychotic. The burden of Risperdal, however, seems clear in light of the reduces slurring that Qi is demonstrating. Objective - General Observations Appearance: Neat Appears Stated Age: Yes Stature: Overweight Posture: WNL Eye Contact: Intense Behavior/Activity: Accelerated, Peculiar - Interaction Observations Attitude Towards Examiner: Cooperative Stated Mood: Euthymic, Anxious Affect: Restricted, Bright Speech Pattern/Tone: Clear, Appropriate, Normal Volume, Excessive Thought Process: Coherent Perception: WNL Thought Content: WNL Hallucination Type: Denies Delusion Type: None - Cognitive Function Orientation: A&O x 4 Level of Consciousness: Awake, Alert, Appropriate Cognition: Impaired Cognition, Impaired Fund of Knowledge Estimated Intelligence: Borderline Range Insight: WNL Judgment Within Normal Limits: No Ability to Make Reasonable Decisions: Mildly Impaired - Medication Compliance Cooperative with Inpatient Medication Regimen: Yes - Group Participation Participates in Group Activities: Partial Assessment - Assessment Merits Inpatient Hospitalization: For Immediate Safety Clinical Impression: Qi is a 28-year-old single white woman with an intellectual disability who comes to the hospital with auditory hallucinations that keep her up at night. Plan - Plan Treatment Plan: Name: QI FRANZ Birthdate: 1990 [id number] Continue the change to Latuda and reduction in Risperdal. Restart Synthroid. Consider discharge Tuesday or Tuesday. Continued Medication Management: Different Medication Medications: Current Medications Al Hydrox/Mg Hydrox/Simethicone (Maalox Plus*) 30 ml PO Q4H PRN PRN Reason: INDIGESTION Benztropine Mesylate (Cogentin Tab*) 2 mg PO BID [facility] Last Admin: 03/02/19 20:38 Dose: 2 mg Divalproex Sodium (Depakote Dr Tab(*)) 500 mg PO BEDTIME [facility] Last Admin: 03/02/19 20:37 Dose: 500 mg Divalproex Sodium (Depakote Dr Tab(*)) 1,000 mg PO QAM [facility] Last Admin: 03/02/19 08:34 Dose: 1,000 mg Ferrous Gluconate (Fergon Tab*) 324 mg PO DAILY [facility] Last Admin: 03/02/19 08:32 Dose: 324 mg Gabapentin (Neurontin Cap(*)) 300 mg PO BEDTIME PRN PRN Reason: insomnia Levothyroxine Sodium (Synthroid Tab*) 50 mcg PO DAILY@0600 [facility] Quail Carbonate (Quail Carbonate Tab*) 300 mg PO QAM [facility] Last Admin: 03/02/19 08:33 Dose: 300 mg [place] Carbonate (Quail Carbonate Tab*) 600 mg PO BEDTIME [facility] Last Admin: 03/02/19 20:40 Dose: 600 mg Lurasidone HCl (Latuda) 60 mg PO 1700 [facility] Last Admin: 03/02/19 18:08 Dose: 60 mg Methotrexate (Methotrexate Tab*) 20 mg PO Q7D [facility] Last Admin: 02/28/19 20:59 Dose: 20 mg Pto: Xeljanz 11 Mg (Er) 1 dose PO DAILY [facility] Last Admin: 03/02/19 08:31 Dose: 1 dose Pto: Risperidone (Zydus 4 Mg) 1 dose PO BEDTIME [facility] Last Admin: 03/02/19 20:42 Dose: 1 dose Polyethylene Glycol/Electrolytes (Miralax*) 17 gm PO 0800,2100 [facility] Last Admin: 03/02/19 20:44 Dose: Not Given Propranolol HCl (Inderal Tab*) 20 mg PO BID [facility] Last Admin: 03/02/19 20:43 Dose: 20 mg
[2019-03-03] MEDS: Levothyroxine TAB* 50 MCG TAB PO SCH (07:50)
[2019-03-03] MEDS: Polyethylene Glycol 3350* 17 GM PACKET PO SCH ×2 (08:35→20:15)
[2019-03-03] MEDS: Propranolol TAB* 20 MG PO SCH ×2 (08:36→20:16)
[2019-03-03] MEDS: XELJANZ 11 MG PO SCH (08:36)
[2019-03-03] MEDS: Benztropine TAB* 1 MG PO SCH ×2 (08:37→20:16)
[2019-03-03] MEDS: Lithium Carbonate TAB* 300 MG PO SCH ×2 (08:38→20:20)
[2019-03-03] MEDS: Ferrous Gluconate TAB* 324 MG TAB PO SCH (08:38)
[2019-03-03] MEDS: Divalproex DR TAB(*) 500 MG PO SCH ×2 (08:39→20:21)
--- NOTE | 2019-03-03 14:51 | PN ---
Subjective - Subjective Date of Service: 03/03/19 Service Type: 06389 Hosp care 15 min low complexity Subjective: Irasema is seen in weekend coverage for JILLIANP, Gaby Chung. The patient is simplistic but cooperative and in good spirits. She questions whether lurasidone causes weight gain but does not have any other questions or concerns. She denies AH or SI and says she would like to be discharged by Tuesday (03/06). Objective - General Observations Appearance: Well Groomed Appears Stated Age: Yes Stature: WNL Posture: WNL Eye Contact: Average Behavior/Activity: WNL - Interaction Observations Attitude Towards Examiner: Cooperative Stated Mood: Euthymic Affect: Full Speech Pattern/Tone: Clear Thought Process: Coherent Perception: WNL Thought Content: WNL Hallucination Type: None Delusion Type: None - Cognitive Function Orientation: A&O x 4 Level of Consciousness: Awake Cognition: WNL Estimated Intelligence: Normal Insight: WNL Judgment Within Normal Limits: Yes - Medication Compliance Cooperative with Inpatient Medication Regimen: Yes - Group Participation Participates in Group Activities: Yes Assessment - Assessment Merits Inpatient Hospitalization: Consolidate Improvements, Pending Safe DC Plan Inpatient DSM-V Dx: F25.0 Clinical Impression: Irasema is a 28-year-old single white woman with an intellectual disability who comes to the hospital with auditory hallucinations that keep her up at night. Plan - Plan Treatment Plan: Name: IRASEMA FRANZ Birthdate: 1990 [id number] Continue the change to Latuda and reduction in Risperdal. Restart Synthroid. Consider discharge Tuesday or Tuesday. Continued Medication Management: Different Medication Medications: Current Medications Al Hydrox/Mg Hydrox/Simethicone (Maalox Plus*) 30 ml PO Q4H PRN PRN Reason: INDIGESTION Benztropine Mesylate (Cogentin Tab*) 2 mg PO BID [facility] Last Admin: 03/03/19 08:37 Dose: 2 mg Divalproex Sodium (Depakote Dr Tab(*)) 500 mg PO BEDTIME [facility] Last Admin: 03/02/19 20:37 Dose: 500 mg Divalproex Sodium (Depakote Dr Tab(*)) 1,000 mg PO QAM [facility] Last Admin: 03/03/19 08:39 Dose: 1,000 mg Ferrous Gluconate (Fergon Tab*) 324 mg PO DAILY [facility] Last Admin: 03/03/19 08:38 Dose: 324 mg Gabapentin (Neurontin Cap(*)) 300 mg PO BEDTIME PRN PRN Reason: insomnia Levothyroxine Sodium (Synthroid Tab*) 50 mcg PO DAILY@0600 [facility] Last Admin: 03/03/19 07:50 Dose: 50 mcg [place] Carbonate ([place] Carbonate Tab*) 300 mg PO QAM [facility] Last Admin: 03/03/19 08:38 Dose: 300 mg [place] Carbonate ([place] Carbonate Tab*) 600 mg PO BEDTIME [facility] Last Admin: 03/02/19 20:40 Dose: 600 mg Lurasidone HCl (Latuda) 60 mg PO 1700 [facility] Last Admin: 03/02/19 18:08 Dose: 60 mg Methotrexate (Methotrexate Tab*) 20 mg PO Q7D [facility] Last Admin: 02/28/19 20:59 Dose: 20 mg Pto: Xeljanz 11 Mg (Er) 1 dose PO DAILY [facility] Last Admin: 03/03/19 08:36 Dose: 1 dose Pto: Risperidone (Zydus 4 Mg) 1 dose PO BEDTIME [facility] Last Admin: 03/02/19 20:42 Dose: 1 dose Polyethylene Glycol/Electrolytes (Miralax*) 17 gm PO 0800,2100 [facility] Last Admin: 03/03/19 08:35 Dose: Not Given Propranolol HCl (Inderal Tab*) 20 mg PO BID [facility] Last Admin: 03/03/19 08:36 Dose: 20 mg - Discharge Plan Discharge Plan: Inpatient Hospitalization
[2019-03-03] MEDS: Lurasidone(*) 60 MG TAB PO SCH (17:41)
[2019-03-03] MEDS: RISPERIDONE 4 MG PO SCH (20:20)
[2019-03-04] MEDS ORDERED: Ibuprofen TAB* 600 MG ONE (05:02)
[2019-03-04] MEDS: Levothyroxine TAB* 50 MCG TAB PO SCH (05:05)
[2019-03-04] MEDS: Polyethylene Glycol 3350* 17 GM PACKET PO SCH ×2 (07:33→19:50)
[2019-03-04] MEDS: XELJANZ 11 MG PO SCH (07:35)
[2019-03-04] MEDS: Propranolol TAB* 20 MG PO SCH ×2 (09:04→19:51)
[2019-03-04] MEDS: Divalproex DR TAB(*) 500 MG PO SCH ×2 (09:05→19:50)
[2019-03-04] MEDS: Lithium Carbonate TAB* 300 MG PO SCH ×2 (09:05→19:51)
[2019-03-04] MEDS: Benztropine TAB* 1 MG PO SCH ×2 (09:05→19:51)
[2019-03-04] MEDS: Ferrous Gluconate TAB* 324 MG TAB PO SCH (09:06)
[2019-03-04] MEDS: Ibuprofen TAB* 600 MG PO PRN (12:17)
[2019-03-04] MEDS: Lurasidone(*) 60 MG TAB PO SCH (17:19)
[2019-03-04] MEDS: RISPERIDONE 4 MG PO SCH (19:51)
[2019-03-05] MEDS: Levothyroxine TAB* 50 MCG TAB PO SCH (06:11)
[2019-03-05] MEDS: Ibuprofen TAB* 600 MG PO PRN (06:31)
[2019-03-05 08:09] VITALS: BP 113/73
[2019-03-05] MEDS: Ferrous Gluconate TAB* 324 MG TAB PO SCH (08:33)
[2019-03-05] MEDS: Benztropine TAB* 1 MG PO SCH (08:33)
[2019-03-05] MEDS: Lithium Carbonate TAB* 300 MG PO SCH (08:33)
[2019-03-05] MEDS: Divalproex DR TAB(*) 500 MG PO SCH (08:34)
[2019-03-05] MEDS: Propranolol TAB* 20 MG PO SCH (08:34)
[2019-03-05] MEDS: Polyethylene Glycol 3350* 17 GM PACKET PO SCH (08:34)
[2019-03-05] MEDS: XELJANZ 11 MG PO SCH (08:35)
[2019-03-05] MEDS: Lurasidone(*) 60 MG TAB PO SCH (13:25)
[2019-03-05] MEDS ORDERED: Lurasidone(*) 60 MG TAB PO ONE (14:00)
[2019-03-06] MEDS ORDERED: Lurasidone(*) 60 MG TAB PO SCH (17:00)
--- NOTE | 2019-03-07 02:06 | DS ---
DISCHARGE SUMMARY: DATE OF ADMISSION: 02/28/19 DATE OF DISCHARGE: 03/05/19 PROVIDER: Gaby Chung NP in Psychiatry SUPERVISING PHYSICIAN: Dr. Weston Dominguez * (DICTATED BY GABY CHUNG NP ) DIAGNOSES: 1. Schizoaffective disorder. 2. Intellectual disability. CONDITION AT THE TIME OF DISCHARGE: Improved. Psychiatrically cleared. Stable. Qi participated in groups and was social with peers. Her grandmother Taylor Clarke is agreeable to her discharge. Qi has done well here psychiatrically. She tolerated new medications well and she will be attending [facility]. MENTAL STATUS EXAMINATION: At the time of discharge, Qi is excitable, but cooperative and she makes good eye contact. She is alert and oriented x4. Her grooming is good. Her speech pace is rapid and pressured, although it is not slurred any longer. Her thought processes are logical. She is not psychotic or delusional. She denies AH, VH, SI, and HI. Her insight is good. Her judgment is fair. She is willing to follow up and urged to see a therapist. DISCHARGE INSTRUCTIONS TO THE PATIENT: A. Medications: 1. Benztropine 2 mg b.i.d. 2. Clindamycin 1% topical to apply to affected area twice a day. 3. Depakote DR 500 mg at bedtime, 1000 mg in the morning. 4. Gabapentin 300 mg at bedtime. 5. Levothyroxine 50 mcg daily in the morning, it should be noted that this was difficult medication dosage to obtain, so this is made as a placeholder and should not be regarded as a dosing change. 6. [place] 300 mg in the morning, 600 mg at bedtime. 7. Latuda 60 mg with a meal. 8. Methotrexate 20 mg weekly. 9. MiraLAX 17 gram packet in the morning and at bedtime. 10. Propranolol 20 mg b.i.d. 11. Xeljanz 11 mg daily. B. Diet is regular. C. Activities as tolerated. Qi is a nonsmoker. There are no studies pending at the time of discharge. D. Followup care. She has appointments with [facility] on Tuesday03/06/19 at 4:45 with her therapist, Tarik Bartholomew, her briefcase sewer will reach out her directly. E. Disposition: She will be returning home with her grandmother. F. Substance abuse followup is not indicated. HOSPITAL COURSE: Part A: Chief Complaint: "I've been hearing voices and seeing things for a couple of weeks, I was scared." The patient is a 28-year-old single white female with a history of schizoaffective disorder, who was brought in by car and is here on a voluntary status following her assertion that she cannot cope because she cannot sleep due to being awakened by the voices in her head. Qi states she is hearing voices, seeing things for a couple of weeks. She did sleep last night in the hospital, but has not been sleeping at home due to being awakened periodically throughout the night. She states she is not particularly stressed. She thinks that the problem is that her medications were changed to include Vistaril to help her sleep. She states that this has been getting worse. She is not having suicidal ideation. She is extremely fixated on her weight, on her appetite, and how much she is eating. She says she is not gorging herself. She is confused about how weighing a person's body works. She reported "I weighed 186 pounds in the afternoon and 183 pounds in the morning" and seemed puzzled by that. She states she eats too much and she cannot help it. She states she is always hungry. She is taking Risperdal and Depakote. She is experiencing hallucination on the unit. She does not appear to be responding to internal stimuli during our interview. She is not confused. She is oriented x4. She is in possession of a sense of humor. She is seemingly quite happy, although she does worry and is anxious at the same time. Part B: Psychiatric treatment was rendered. Qi was admitted to the adult behavioral unit and placed on 15 minute checks for safety. She went to groups, did well on the unit, interacted with peers well. She tolerated med changes, but one that is most important to her is the reduction in Risperdal from 8 mg to 4 mg and the addition of 60 mg of Latuda to substitute for that missing 4 mg of Risperdal. The provocation for changing from Risperdal to Latuda is the side effect profile. Qi has a propensity to fixate on certain topics and the one that she had chosen at this time is her weight and the fact that she is hungry all the time. Latuda is much less burdensome in that way and also as Qi is so heavily medicated to maintain her status of stable, it makes sense to reduce the burden of side effects in anyway possible. Thus in the future, it would be desirable to reduce the Risperdal further to 0 and increase the Latuda higher to either 120 or 160 that could be accomplished by decreasing Risperdal by 2 and increasing the Latuda to 120 and then decreasing the Risperdal completely to 0 once she is stable on the higher dose of Latuda. This change was not possible in the hospital due to timing. Qi is on an atypical antipsychotic, it is important to note that her hemoglobin A1c is 4.1, triglycerides are 436, cholesterol 278, LDL cholesterol direct 190, HDL cholesterol is 62.8. Incidentally, her TSH is 3.34. I did call her grandmother Taylor Tony. Taylor indicates that Qi is an intense person, who wants things immediately. Her intellectual disability causes her to have this intensity and demanding nature. Taylor seems to be delighted by Qi, however, and is happy that she is feeling better. When I pointed out that Qi is no longer slurring her words, Taylor stated she had not noticed that, but that she was delighted about it. Qi is much improved. She is less preoccupied. She states she feels better. She is excited that she is not as hungry as she once was. She is enjoying the change of medication. It is not clear whether this is entirely due to the reduction in side effects burden or if it is simply because Qi had a change made to her medications that she was pleased to have. In any case, she is much improved. She remains future oriented and she was safe here at the hospital. GABY CHUNG, JILLIAN [id number]/[facility] #: [id number] MTDD
== END 2019-03-05 13:30 | disposition home or self-care (01) | DRG 885 ==
LOC: ED 16:41 → BSU 02-28 09:51
PROVIDERS: ADMIT Psychiatry & Neurology Psychiatry; ATTEND Psychiatry & Neurology Psychiatry
DX: F25.0 Schizoaffective disorder, bipolar type (principal); Z79.899 Other long term (current) drug therapy; Z81.8 Family history of other mental and behavioral disorders; F79 Unspecified intellectual disabilities; D64.9 Anemia, unspecified
CPT/HCPCS: 36415; 80053; 80061; 80164; 80178; 80307; 80320; 80329; 81003; 81015; 83036; 83721; 84443; 84702; 85025; 87086; 90686; 99222; 99231; 99238; 99284; A9270-GY; G0480; J8610

== ENCOUNTER 2020-12-02 15:48 | Inpatient (IN) ==
[2020-12-02 16:28] LABS: Urine Appearance Cloudy; Urine Bilirubin Negative (Negative); Urine Blood Negative (Negative); Urine Color Yellow; Urine Glucose Negative (Negative); Urine Ketones Negative (Negative); Urine Nitrite Negative (Negative); Urine Protein Negative (Negative); Urine Specific Gravity 1.004 (1.002-1.030); Urine Urobilinogen Negative (Negative)
[2020-12-02 16:34] LABS: Urine Bacteria Absent (Absent); Urine Red Blood Cell Trace(0-2/hpf) (Absent); Urine Squamous Epithelial Cell Present (Absent); Urine White Blood Cell Trace(0-5/hpf) (Absent)
[2020-12-02 16:47] LABS: Hematocrit 31 % (35-47); Hemoglobin 10.5 g/dL (12.0-16.0); Mean Corpuscular HGB Conc 34 g/dL (31-36); Mean Corpuscular Hemoglobin 36 pg (27-31); Mean Corpuscular Volume 105 fL (80-97); Mean Platelet Volume 7.9 fL (7.4-10.4); Platelet Count 206 10^3/uL (150-450); Red Blood Count 2.92 10^6 /uL (3.70-4.87); Red Cell Distribution Width 14 % (10-15); White Blood Count 7.1 10^3/uL (3.5-10.8)
[2020-12-02 16:48] LABS: Urine Benzodiazepine Screen None Detected (None Detect); Urine Cannabinoids Screen None Detected (None Detect); Urine Opiates Screen None Detected (None Detect)
[2020-12-02 17:12] LABS: HCG Pregnancy < 0.60 mIU/mL
[2020-12-02 17:14] LABS: ABS Eosinophils 0.2 10^3/ul (0-0.6); ABS Lymphocytes 1.8 10^3/ul (1.0-4.8); ABS Monocytes 0.8 10^3/ul (0-0.8); ABS Neutrophils 4.3 10^3/ul (1.5-7.7); Eosinophil % 2.2 %; Nucleated Red Blood Cells % 0.2
[2020-12-02 17:17] LABS: ALT 10 U/L (7-52); AST 16 U/L (13-39); Albumin 4.4 g/dL (3.2-5.2); Albumin/Globulin Ratio 2.1 (1-3); Alkaline Phosphatase 36 U/L (35-149); Anion Gap 4 mmol/L (2-11); Blood Urea Nitrogen 6 mg/dL (6-24); CO2 Carbon Dioxide 29 mmol/L (22-32); Calcium 9.7 mg/dL (8.6-10.3); Chloride 103 mmol/L (101-111); EGFR African American 62.4 (>60); EGFR Non-African American 51.6 (>60); Globulin 2.1 g/dL (2-4); Glucose 97 mg/dL (70-100); Potassium 4.1 mmol/L (3.5-5.0); Sodium 136 mmol/L (135-145); Total Protein 6.5 g/dL (6.4-8.9)
[2020-12-02 17:42] LABS: Acetaminophen < 15 mcg/mL; Alcohol, S < 10 mg/dL (<10); Salicylate < 2.50 mg/dL (<30)
[2020-12-02 21:39] LABS: Lithium 1.12 mmol/L (0.6-1.2)
[2020-12-02] MEDS ORDERED: Al Hydrox/Mg Hydrox/Simet LIQ 30 ML UDC PO PRN (22:34)
[2020-12-03 07:53] LABS: HDL Cholesterol 53.4 mg/dL
[2020-12-03] MEDS ORDERED: Lurasidone 120 mg TAB PO SCH (08:30)
[2020-12-03] MEDS ORDERED: XELJANZ PO SCH (09:00)
[2020-12-03] MEDS: Vitamin THERAPEUTIC TAB PO SCH (09:36)
[2020-12-04] MEDS: Vitamin THERAPEUTIC TAB PO SCH (09:34)
[2020-12-04] MEDS: TOFACITINIB CITRATE 11 MG PO SCH (09:35)
[2020-12-04] MEDS: Lurasidone 120 mg TAB PO SCH (16:58)
[2020-12-05] MEDS: TOFACITINIB CITRATE 11 MG PO SCH (09:05)
[2020-12-05] MEDS: Vitamin THERAPEUTIC TAB PO SCH (09:07)
[2020-12-05] MEDS: Lurasidone 120 mg TAB PO SCH (16:59)
[2020-12-06] MEDS: Vitamin THERAPEUTIC TAB PO SCH (08:47)
[2020-12-06] MEDS: TOFACITINIB CITRATE 11 MG PO SCH (08:48)
[2020-12-06] MEDS: Lurasidone 120 mg TAB PO SCH (17:41)
[2020-12-07] MEDS: TOFACITINIB CITRATE 11 MG PO SCH (08:33)
[2020-12-07] MEDS: Vitamin THERAPEUTIC TAB PO SCH (09:55)
[2020-12-07] MEDS: Lurasidone 120 mg TAB PO SCH (16:43)
[2020-12-08] MEDS: TOFACITINIB CITRATE 11 MG PO SCH (08:14)
[2020-12-08] MEDS: Vitamin THERAPEUTIC TAB PO SCH (08:15)
[2020-12-08 08:22] VITALS: BP 150/111
== END 2020-12-08 13:22 | disposition home or self-care (01) | DRG 885 ==
LOC: ED 15:48 → BSU 21:19
PROVIDERS: ADMIT Psychiatry & Neurology Psychiatry; ATTEND Psychiatry & Neurology Psychiatry

== ENCOUNTER 2021-03-13 16:50 | Inpatient (IN) ==
[2021-03-13 20:16] LABS: Hematocrit 35 % (35-47); Hemoglobin 11.8 g/dL (12.0-16.0); Mean Corpuscular HGB Conc 34 g/dL (31-36); Mean Corpuscular Hemoglobin 35 pg (27-31); Mean Corpuscular Volume 102 fL (80-97); Mean Platelet Volume 8.4 fL (7.4-10.4); Platelet Count 217 10^3/uL (150-450); Red Cell Distribution Width 13 % (10-15); White Blood Count 8.2 10^3/uL (3.5-10.8)
[2021-03-13 20:26] LABS: Albumin 4.9 g/dL (3.2-5.2); Albumin/Globulin Ratio 1.7 (1-3); Calcium 10.7 mg/dL (8.6-10.3); Globulin 2.9 g/dL (2-4); Potassium 4.2 mmol/L (3.5-5.0); Total Bilirubin 0.5 mg/dL (0.2-1.0); Total Protein 7.8 g/dL (6.4-8.9)
[2021-03-13 20:35] LABS: ABS Eosinophils 0.2 10^3/ul (0-0.6); ABS Lymphocytes 1.4 10^3/ul (1.0-4.8); ABS Neutrophils 5.6 10^3/ul (1.5-7.7); Lymphocyte % 16.9 %; Nucleated Red Blood Cells % 0.1
[2021-03-13] MEDS ORDERED: Lactated Ringers 1000 ml BAG 1,000 ML IV ONE ×2 (21:02→21:03)
[2021-03-13 21:50] LABS: Rapid COVID-19 Molecular Undetected (Undetected)
[2021-03-13] MEDS ORDERED: NS 0.9% 1000 ml BAG 1,000 ML IV SCH (22:30)
[2021-03-14 00:44] LABS: Lithium 2.12 mmol/L (0.6-1.2)
[2021-03-14] MEDS ORDERED: TOFACITINIB CITRATE 11 MG PO SCH (15:00)
[2021-03-14 15:49] LABS: Calcium 9.5 mg/dL (8.6-10.3); Potassium 4.5 mmol/L (3.5-5.0)
[2021-03-14 16:56] VITALS: BP 128/83
[2021-03-14] MEDS ORDERED: Lurasidone 120 mg TAB PO SCH ×2 (17:00)
== END 2021-03-14 18:05 | disposition home or self-care (01) | DRG 884 ==
LOC: ED 16:50 → EDHOLD 22:35 → ED 03-14 00:48 → MEDTELE 03-14 01:16 → SUATTDRO 03-14 01:16
PROVIDERS: ADMIT Hospitalist; ATTEND Family Medicine

== ENCOUNTER 2021-06-30 09:14 | Inpatient (IN) ==
[2021-06-30 10:21] LABS: Hematocrit 37 % (35-47); Hemoglobin 12.4 g/dL (12.0-16.0); Mean Corpuscular HGB Conc 33 g/dL (31-36); Mean Corpuscular Hemoglobin 32 pg (27-31); Mean Corpuscular Volume 96 fL (80-97); Platelet Count 218 10^3/uL (150-450); Red Blood Count 3.87 10^6 /uL (3.70-4.87); Red Cell Distribution Width 14 % (10-15); White Blood Count 6.6 10^3/uL (3.5-10.8)
[2021-06-30 10:38] LABS: ALT 11 U/L (7-52); AST 15 U/L (13-39); Albumin 4.9 g/dL (3.2-5.2); Albumin/Globulin Ratio 1.9 (1-3); Alkaline Phosphatase 31 U/L (35-149); Anion Gap 9 mmol/L (2-11); Blood Urea Nitrogen 6 mg/dL (6-24); CO2 Carbon Dioxide 27 mmol/L (22-32); Calcium 10.6 mg/dL (8.6-10.3); Chloride 102 mmol/L (101-111); Globulin 2.6 g/dL (2-4); Glucose 100 mg/dL (70-100); Potassium 3.5 mmol/L (3.5-5.0); Sodium 138 mmol/L (135-145); Total Protein 7.5 g/dL (6.4-8.9); eGFR CKD-EPI 64.5 (>60)
[2021-06-30 10:44] LABS: HCG Pregnancy < 0.60 mIU/mL
[2021-06-30 10:59] LABS: Acetaminophen < 15 mcg/mL; Alcohol, S < 13 mg/dL (<13); Salicylate < 2.50 mg/dL (<30)
[2021-06-30 11:04] LABS: Polychromasia 1+
[2021-06-30 11:05] LABS: ABS Lymphocytes 1.6 10^3/ul (1.0-4.8); ABS Neutrophils 4.7 10^3/ul (1.5-7.7)
[2021-06-30 11:13] LABS: TSH Ultra Thyroid Stim Horm 3.48 mcIU/mL (0.34-5.60)
[2021-07-01 08:42] LABS: HDL Cholesterol 51.7 mg/dL
[2021-07-02 07:17] LABS: Albumin 4.5 g/dL (3.2-5.2); Albumin/Globulin Ratio 1.7 (1-3); Calcium 9.9 mg/dL (8.6-10.3); Globulin 2.6 g/dL (2-4); Potassium 4.1 mmol/L (3.5-5.0); Total Bilirubin 0.4 mg/dL (0.2-1.0); Total Protein 7.1 g/dL (6.4-8.9); eGFR CKD-EPI 74.5 (>60)
[2021-07-02] MEDS: TOFACITINIB 11 MG PO SCH (09:13)
[2021-07-02] MEDS: Al Hydrox/Mg Hydrox/Simet LIQ 30 ML UDC PO PRN (11:37)
[2021-07-03] MEDS: TOFACITINIB 11 MG PO SCH (07:48)
[2021-07-04] MEDS: TOFACITINIB 11 MG PO SCH (07:16)
[2021-07-04] MEDS: Al Hydrox/Mg Hydrox/Simet LIQ 30 ML UDC PO PRN (14:35)
[2021-07-05] MEDS: TOFACITINIB 11 MG PO SCH (08:25)
[2021-07-06] MEDS: TOFACITINIB 11 MG PO SCH (08:07)
[2021-07-06] MEDS: Lurasidone 120 mg TAB PO SCH (17:18)
[2021-07-07] MEDS: TOFACITINIB 11 MG PO SCH (08:32)
[2021-07-07] MEDS: Lurasidone 120 mg TAB PO SCH (17:25)
[2021-07-08] MEDS: TOFACITINIB 11 MG PO SCH (08:45)
[2021-07-08] MEDS: Lurasidone 120 mg TAB PO SCH (17:41)
[2021-07-09] MEDS: TOFACITINIB 11 MG PO SCH (10:37)
[2021-07-09] MEDS: Lurasidone 120 mg TAB PO SCH (18:45)
[2021-07-10] MEDS: TOFACITINIB 11 MG PO SCH (10:29)
[2021-07-11] MEDS: TOFACITINIB 11 MG PO SCH (09:51)
[2021-07-11] MEDS: Al Hydrox/Mg Hydrox/Simet LIQ 30 ML UDC PO PRN (21:25)
[2021-07-12] MEDS: TOFACITINIB 11 MG PO SCH (12:34)
[2021-07-12] MEDS: Al Hydrox/Mg Hydrox/Simet LIQ 30 ML UDC PO PRN (17:48)
[2021-07-13] MEDS: TOFACITINIB 11 MG PO SCH (09:36)
[2021-07-13] MEDS: Al Hydrox/Mg Hydrox/Simet LIQ 30 ML UDC PO PRN ×2 (09:39→17:02)
[2021-07-14] MEDS: TOFACITINIB 11 MG PO SCH (09:30)
[2021-07-15] MEDS: TOFACITINIB 11 MG PO SCH (08:09)
[2021-07-15] MEDS: Al Hydrox/Mg Hydrox/Simet LIQ 30 ML UDC PO PRN ×2 (16:13→20:24)
[2021-07-16] MEDS: TOFACITINIB 11 MG PO SCH (09:27)
[2021-07-16] MEDS: Al Hydrox/Mg Hydrox/Simet LIQ 30 ML UDC PO PRN (16:15)
[2021-07-17] MEDS: TOFACITINIB 11 MG PO SCH (07:41)
[2021-07-17 07:50] LABS: ABS Eosinophils 0.1 10^3/ul (0-0.6); ABS Monocytes 0.7 10^3/ul (0-0.8); ABS Neutrophils 2.9 10^3/ul (1.5-7.7); Eosinophil % 1.5 %; Hematocrit 32 % (35-47); Hemoglobin 11.1 g/dL (12.0-16.0); Lymphocyte % 20.9 %; Mean Corpuscular HGB Conc 35 g/dL (31-36); Mean Corpuscular Hemoglobin 33 pg (27-31); Mean Corpuscular Volume 95 fL (80-97); Mean Platelet Volume 7.3 fL (7.4-10.4); Nucleated Red Blood Cells % 0.1; Platelet Count 242 10^3/uL (150-450); Red Blood Count 3.36 10^6 /uL (3.70-4.87); Red Cell Distribution Width 14 % (10-15); White Blood Count 4.7 10^3/uL (3.5-10.8)
[2021-07-17 08:29] LABS: Albumin 4.3 g/dL (3.2-5.2); Albumin/Globulin Ratio 1.7 (1-3); Calcium 9.9 mg/dL (8.6-10.3); Globulin 2.5 g/dL (2-4); Potassium 4.7 mmol/L (3.5-5.0); Total Bilirubin 0.5 mg/dL (0.2-1.0); Total Protein 6.8 g/dL (6.4-8.9); eGFR CKD-EPI 71.1 (>60)
[2021-07-18] MEDS: Al Hydrox/Mg Hydrox/Simet LIQ 30 ML UDC PO PRN ×2 (05:52→16:35)
[2021-07-18] MEDS: TOFACITINIB 11 MG PO SCH (08:08)
[2021-07-19] MEDS: TOFACITINIB 11 MG PO SCH (09:17)
[2021-07-20] MEDS: TOFACITINIB 11 MG PO SCH (08:32)
[2021-07-21] MEDS: Al Hydrox/Mg Hydrox/Simet LIQ 30 ML UDC PO PRN (09:16)
[2021-07-21] MEDS: TOFACITINIB 11 MG PO SCH (13:52)
[2021-07-22] MEDS: TOFACITINIB 11 MG PO SCH (08:56)
[2021-07-22] MEDS: Al Hydrox/Mg Hydrox/Simet LIQ 30 ML UDC PO PRN (22:54)
[2021-07-23] MEDS: TOFACITINIB 11 MG PO SCH (08:56)
[2021-07-24] MEDS: TOFACITINIB 11 MG PO SCH (08:38)
[2021-07-25] MEDS: TOFACITINIB 11 MG PO SCH (09:12)
[2021-07-26] MEDS: TOFACITINIB 11 MG PO SCH (08:55)
[2021-07-27] MEDS: TOFACITINIB 11 MG PO SCH (08:28)
[2021-07-27] MEDS: Al Hydrox/Mg Hydrox/Simet LIQ 30 ML UDC PO PRN (21:47)
[2021-07-28] MEDS: TOFACITINIB 11 MG PO SCH (07:24)
[2021-07-28] MEDS: Al Hydrox/Mg Hydrox/Simet LIQ 30 ML UDC PO PRN (13:19)
[2021-07-29] MEDS: TOFACITINIB 11 MG PO SCH (08:31)
[2021-07-30] MEDS: TOFACITINIB 11 MG PO SCH (09:02)
[2021-07-31] MEDS: Al Hydrox/Mg Hydrox/Simet LIQ 30 ML UDC PO PRN ×2 (00:05→09:10)
[2021-07-31] MEDS: TOFACITINIB 11 MG PO SCH (09:09)
[2021-08-01] MEDS: TOFACITINIB 11 MG PO SCH (08:47)
[2021-08-02] MEDS: TOFACITINIB 11 MG PO SCH (10:10)
[2021-08-03] MEDS: TOFACITINIB 11 MG PO SCH (09:03)
[2021-08-03] MEDS: Al Hydrox/Mg Hydrox/Simet LIQ 30 ML UDC PO PRN (17:31)
[2021-08-04] MEDS: TOFACITINIB 11 MG PO SCH (07:28)
[2021-08-05] MEDS: TOFACITINIB 11 MG PO SCH (08:46)
[2021-08-05] MEDS: Al Hydrox/Mg Hydrox/Simet LIQ 30 ML UDC PO PRN (11:00)
[2021-08-06] MEDS: TOFACITINIB 11 MG PO SCH (09:15)
[2021-08-07] MEDS: TOFACITINIB 11 MG PO SCH (09:00)
[2021-08-08] MEDS: TOFACITINIB 11 MG PO SCH (08:37)
[2021-08-09] MEDS: TOFACITINIB 11 MG PO SCH (08:54)
[2021-08-09 21:08] VITALS: BP 130/82
[2021-08-10] MEDS: Al Hydrox/Mg Hydrox/Simet LIQ 30 ML UDC PO PRN (00:18)
[2021-08-10] MEDS: TOFACITINIB 11 MG PO SCH (08:04)
== END 2021-08-10 09:00 | disposition home or self-care (01) | DRG 885 ==
LOC: ED 09:14 → EDHOLD 12:07 → BSU 14:13
PROVIDERS: ADMIT Psychiatry & Neurology Psychiatry; ATTEND Student in an Organized Health Care Education/Training Program